=== PATIENT | female | born 1940 | race African-American/Black ===

== ENCOUNTER 2016-08-08 09:28 | Inpatient (IN) | payer OTHER, MEDICARE ==
[~2016-08-08] VITALS: Ht 165.1 cm; Wt 68.9 kg
[~2016-08-08 09:28] MED LIST: ACET325T PO; SENN8.6T15 PO; ULTR50TA5 PO
[2016-08-08 09:30] VITALS: BP 121/75; PULSE 97; RESP 14; TEMP 97.8; O2SAT 95
[2016-08-08 09:43] VITALS: BP 121/75; PULSE 97; RESP 14; TEMP 97.8; O2SAT 95
--- NOTE | 2016-08-08 09:53 | PD ---
HPI Chief Complaint: GI Complaint Time Seen by Provider: 09:36 Travel History International Travel<30 days: No Contact w/Intl Traveler<30days: No Traveled to known affect area: No History of Present Illness HPI The patient was seen and examined in the presence of the nurse. This patient complains of abdominal pain along with nausea and vomiting. Location of pain is epigastric. Duration 4 days. Severity is moderate. No alleviating factors. She thinks problem is related to a new medication she started. He was prescribed tramadol for her arthritis. Symptoms started about 30 minutes after she took the first dose of that medication and she has been taking since. Denies diarrhea. No lower quadrant abdominal pain. Not having any fever or urinary complaints. PFSH Past Medical History Hx Anticoagulant Therapy: Yes Arthritis: Yes (RA) Asthma: No Autoimmune Disease: Yes (RA) Anxiety: No Depression: No Heart Rhythm Problems: No Cancer: No Cardiovascular Problems: Yes High Cholesterol: No Chemotherapy: No Chest Pain: No Congestive Heart Failure: No COPD: No Cerebrovascular Accident: Yes Diabetes: No Diminished Hearing: No Endocrine: No Gastrointestinal Disorders: Yes GERD: Yes Genitourinary: Yes Hiatal Hernia: No Hypertension: Yes Immune Disorder: Yes Implanted Vascular Access Dvce: Yes Kidney Stones: No Musculoskeletal: Yes Neurologic: Yes Psychiatric: No Reproductive: Yes (FIBROIDS, HYSTERECTOMY) Respiratory: No Immunizations Current: No Migraines: No Radiation Therapy: No Renal Failure: Yes (ANDRÉS) Seizures: No Sickle Cell Disease: No Sleep Apnea: No Thyroid Disease: No Ulcer: No Past Surgical History Abdominal Surgery: No AICD: No Arteriovenous Shunt: No Cardiac Surgery: No Ear Surgery: No Endocrine Surgery: No Eye Surgery: No Genitourinary Surgery: No Gynecologic Surgery: Yes (HYSTERECTOMY) Hysterectomy: Yes Insulin Pump: No Joint Replacement: Yes (RIGHT TOTAL HIP) Oral Surgery: No Pacemaker: No Thoracic Surgery: No Other Surgery: Yes Social History Alcohol Use: No Tobacco Use: No Substance Use: No Allergies-Medications (Allergen,Severity, Reaction): Coded Allergies: Shellfish (Verified Allergy, Intermediate, rash, 08/08/16) Reported Meds & Prescriptions Reported Meds & Active Scripts Active Ultram (Tramadol HCl) 50 Mg Tab 1-2 Mg PO Q4H PRN Review of Systems General / Constitutional: No: Fever Eyes: No: Visual changes HENT: No: Headaches Cardiovascular: No: Chest Pain or Discomfort Respiratory: No: Shortness of Breath Gastrointestinal: Positive: Nausea, Vomiting, Abdominal Pain Genitourinary: No: Dysuria Musculoskeletal: No: Pain Skin: No Rash Neurologic: No: Weakness Psychiatric: No: Depression Endocrine: No: Polydipsia Hematologic/Lymphatic: No: Easy Bruising Physical Exam Narrative GENERAL: Well-nourished, well-developed patient in no apparent distress. SKIN: Warm and dry. HEAD: Atraumatic. Normocephalic. EYES: Pupils equal and round. No scleral icterus. No injection or drainage. ENT: No nasal bleeding or discharge. Mucous membranes pink and moist. NECK: Trachea midline. No JVD. CARDIOVASCULAR: Regular rate and rhythm. No murmur appreciated. RESPIRATORY: No accessory muscle use. Clear to auscultation. Breath sounds equal bilaterally. GASTROINTESTINAL: Abdomen soft, non-tender, nondistended. Hepatic and splenic margins not palpable. Well-healed midline surgical scar MUSCULOSKELETAL: No obvious deformities. No clubbing. No cyanosis. No edema. NEUROLOGICAL: Awake and alert. No obvious cranial nerve deficits. Motor grossly within normal limits. Normal speech. PSYCHIATRIC: Appropriate mood and affect; insight and judgment normal. Data Data Last Documented VS Vital Signs Date Time Temp Pulse Resp B/P Pulse Ox O2 Delivery O2 Flow Rate FiO2 08/08/16 12:53 83 14 101/55 95 Room Air 08/08/16 09:43 97.8 Orders Complete Blood Count With Diff (08/08/16 09:47) Comprehensive Metabolic Panel (08/08/16 09:47) Lipase (08/08/16 09:47) Abdomen, Flat & Upright (08/08/16 ) Iv Access Insert/Monitor (08/08/16 09:47) Morphine Inj (Morphine Inj) (08/08/16 10:00) Ondansetron Inj (Zofran Inj) (08/08/16 10:00) Sodium Chloride 0.9% Flush (Ns Flush) (08/08/16 10:00) Sodium Chlor 0.9% 1000 Ml Inj (Ns 1000 M (08/08/16 11:45) Ct Abd/Pel W/O Iv Contrast (08/08/16 ) Admit To Inpatient (08/08/16 ) Code Status (08/08/16 13:24) Vital Signs (Adult) Q4H (08/08/16 13:24) Activity Oob With Assistance (08/08/16 13:24) Diet Clear Liquid (08/08/16 Lunch) Sodium Chlor 0.9% 1000 Ml Inj (Ns 1000 M (08/08/16 14:00) Sodium Chloride 0.9% Flush (Ns Flush) (08/08/16 13:30) Sodium Chloride 0.9% Flush (Ns Flush) (08/08/16 21:00) Acetaminophen (Tylenol) (08/08/16 14:00) Ondansetron Inj (Zofran Inj) (08/08/16 14:00) Comprehensive Metabolic Panel (08/09/16 06:00) Complete Blood Count With Diff (08/09/16 06:00) Pt Request For Service (08/08/16 13:24) Case Management Consult (08/08/16 13:24) Scd Bilateral/Knee High LIBBY.BID (08/08/16 13:24) Mg Bilateral/Knee High LIBBY.QSHIFT (08/08/16 13:24) Acetaminophen (Tylenol) (08/08/16 14:00) Naloxone Inj (Narcan Inj) (08/08/16 13:30) Inpatient Certification (08/08/16 ) Pantoprazole Inj (Protonix Inj) (08/09/16 09:00) Enalaprilat Inj (Vasotec Inj) (08/08/16 14:00) Sodium Chlor 0.9% 1000 Ml Inj (Ns 1000 M (08/08/16 14:00) Basic Metabolic Panel (Bmp) (08/08/16 18:00) Us Kidney/Renal/Bladder (08/08/16 ) Labs Laboratory Tests Test 08/08/16 10:35 White Blood Count 6.3 TH/MM3 Red Blood Count 5.22 MIL/MM3 Hemoglobin 13.7 GM/DL Hematocrit 41.1 % Mean Corpuscular Volume 78.7 FL Mean Corpuscular Hemoglobin 26.3 PG Mean Corpuscular Hemoglobin 33.4 % Concent Red Cell Distribution Width 16.4 % Platelet Count 193 TH/MM3 Mean Platelet Volume 10.2 FL Neutrophils (%) (Auto) 56.6 % Lymphocytes (%) (Auto) 30.4 % Monocytes (%) (Auto) 11.7 % Eosinophils (%) (Auto) 1.0 % Basophils (%) (Auto) 0.3 % Neutrophils # (Auto) 3.5 TH/MM3 Lymphocytes # (Auto) 1.9 TH/MM3 Monocytes # (Auto) 0.7 TH/MM3 Eosinophils # (Auto) 0.1 TH/MM3 Basophils # (Auto) 0.0 TH/MM3 CBC Comment DIFF FINAL Differential Comment Sodium Level 128 MEQ/L Potassium Level 3.8 MEQ/L Chloride Level 83 MEQ/L Carbon Dioxide Level 30.5 MEQ/L Anion Gap 15 MEQ/L Blood Urea Nitrogen 71 MG/DL Creatinine 2.82 MG/DL Estimat Glomerular Filtration 20 ML/MIN Rate Random Glucose 111 MG/DL Calcium Level 9.6 MG/DL Total Bilirubin 0.6 MG/DL Aspartate Amino Transf 18 U/L (AST/SGOT) Alanine Aminotransferase 16 U/L (ALT/SGPT) Alkaline Phosphatase 100 U/L Total Protein 10.3 GM/DL Albumin 3.7 GM/DL Lipase 194 U/L [facility] Medical Decision Making Medical Screen Exam Complete: Yes Emergency Medical Condition: Yes Medical Record Reviewed: Yes Differential Diagnosis Pancreatitis, ileus, medication side effect Narrative Course I have reviewed the patient's electronic medical record. IV placed CBC is normal Metabolic profile is very abnormal with hyponatremia and renal insufficiency LFTs are normal Lipase is normal I reviewed her flat and upper abdomen x-ray which shows a few scattered air- fluid levels I gave her dose of morphine and Zofran for symptom relief CT of abdomen and pelvis was done which reveals dilated small intestine with a decrease in caliber to the distal small intestine. Suggest some degree of ileus /obstruction. She is vomiting and dehydrated to the point of renal insufficiency. She will require hospital admission for IV fluid and bowel rest and further evaluation of intra-abdominal process. I reviewed with hospitalist Diagnosis Primary Impression: Partial small bowel obstruction Additional Impressions: Dehydration with hyponatremia Acute renal failure Qualified Code: N17.9 - Acute renal failure, unspecified acute renal failure type Admitting Information Admitting Physician Requests: Admit Giovanni Nava MD Aug 08, 2016 09:53
[2016-08-08] MEDS ORDERED: ONDANSETRON HCL 4 MG/2 ML VIAL IVP ONE (10:00)
[2016-08-08] MEDS ORDERED: MORPHINE SULFATE 4 MG/ML INJ IV PUSH ONE (10:00)
[2016-08-08] MEDS ORDERED: SODIUM CHLORIDE 0.9% FLUSH 5 ML FLUSH IVF PRN (10:00)
--- NOTE | 2016-08-08 10:37 | RADRPT ---
EXAM DATE/TIME: 08/08/2016 10:06 [facility] COMPARISON: No previous studies available for comparison. INDICATIONS : Diffuse abdominal pain with nausea and vomiting. MEDICAL HISTORY : Benign fibroid tumor. SURGICAL HISTORY : None. ENCOUNTER: Initial ACUITY: 4 - 6 days PAIN SCORE: 5/10 LOCATION: Abdomen. FINDINGS: Supine and upright views of the abdomen were performed. The abdominal bowel gas pattern is normal. No air fluid levels are seen. No abnormal masses, calcifications, or organomegaly is seen. The visu alized lower lungs are clear. No evidence of free intraperitoneal gas. The osseous structures are u nremarkable. The IVC filter is in place. Right hip bipolar arthroplasty in place CONCLUSION: Normal examination. A few air-fluid levels in nondilated loops of small bowel. No evidence of obstru ction Julio Batista MD on August 08, 2016 at 10:33 Board Certified Radiologist. This report was verified electronically.
[2016-08-08 10:59] LABS: AUTOMATED NEUTROPHIL # 3.5 TH/MM3 (1.8-7.7); BASOPHIL % 0.3 % (0.0-2.0); EOSINOPHIL # 0.1 TH/MM3 (0-0.4); HEMATOCRIT 41.1 % (35.0-46.0); HEMO FLAGS DIFF FINAL; LYMPH % 30.4 % (9.0-44.0); LYMPHOCYTE # 1.9 TH/MM3 (1.0-4.8); MEAN CELL VOLUME 78.7 FL (80.0-100.0); MEAN CORPUSCULAR HEMOGLOBIN 26.3 PG (27.0-34.0); MEAN CORPUSCULAR HGB CONC 33.4 % (32.0-36.0); MONO % 11.7 % (0.0-8.0); NEUT % 56.6 % (16.0-70.0); PLATELET COUNT 193 TH/MM3 (150-450); RED BLOOD COUNT 5.22 MIL/MM3 (4.00-5.30); RED CELL DISTRIBUTION WIDTH 16.4 % (11.6-17.2); WHITE BLOOD COUNT 6.3 TH/MM3 (4.0-11.0)
[2016-08-08 11:17] LABS: ALKALINE PHOSPHATASE 100 U/L (45-117); TOTAL BILIRUBIN ADULT 0.6 MG/DL (0.2-1.0)
[2016-08-08 11:19] LABS: ALT (GPT) 16 U/L (10-53); ANION GAP 15 MEQ/L (5-15); AST (GOT) 18 U/L (15-37); BICARBONATE 30.5 MEQ/L (21.0-32.0); BLOOD UREA NITROGEN 71 MG/DL (7-18); CHLORIDE 83 MEQ/L (98-107); GLOMERULAR FILTRATION RATE 20 ML/MIN (>89); POTASSIUM 3.8 MEQ/L (3.5-5.1); SODIUM (NA) 128 MEQ/L (136-145)
[2016-08-08] MEDS ORDERED: SODIUM CHLOR 0.9% 1000 ML INJ 1,000 ML IV ONE ×2 (11:45→14:00)
--- NOTE | 2016-08-08 12:23 | RADRPT ---
EXAM DATE/TIME: 08/08/2016 11:41 [facility] COMPARISON: No previous studies available for comparison. INDICATIONS : Diffuse abdomen pain. ORAL CONTRAST: No oral contrast ingested. RADIATION DOSE: 5.03 CTDIvol (mGy) MEDICAL HISTORY : Cerebrovascular disease. Hypertension. Renal failure, chronic. SURGICAL HISTORY : Hysterectomy. ENCOUNTER: Initial ACUITY: 1 day PAIN SCALE: 2/10 LOCATION: abdomen TECHNIQUE: Volumetric scanning of the abdomen and pelvis was performed. Using automated exposure control and ad justment of the mA and/or kV according to patient size, radiation dose was kept as low as reasonably achievable to obtain optimal diagnostic quality images. FINDINGS: CT of the abdomen and pelvis was performed without contrast. The unenhanced liver, gallbladder, kidn eys, adrenal glands and spleen are unremarkable. The pancreas is unremarkable. There is significant fluid throughout the small bowel except there are some decompressed loops of sma ll bowel in the right mid abdomen. I would estimate at least 80 to 90% of the small bowel is dilated and fluid filled. There area number of loops between 3 to 4 cm and width. I don't see any definite point of obstruction or obvious hernia but there is clearly a significant caliber change in the mid to distal ileum. There is still stool throughout the colon. IVC filter is in place. CONCLUSION: Definite caliber change in the mid to distal ileum. There are numerous fluid filled loops of small bowel between 3 to 4 cm and then the distal ileal loops area only 1 cm across. I don't see any disti nct transition zone or definite internal hernia. Julio Batista MD on August 08, 2016 at 11:58 Board Certified Radiologist. This report was verified electronically.
[2016-08-08 12:53] VITALS: BP 101/55; PULSE 83; RESP 14; O2SAT 95
--- NOTE | 2016-08-08 13:28 | HHI.HP ---
[facility] Primary Care Physician Unknown Admission Diagnosis Diagnoses: (1) Intractable nausea and vomiting (2) Acute renal failure Chief Complaint: Intractable nausea and vomiting Travel History International Travel<30 Days: No Contact w/Intl Traveler <30 Da: No Traveled to Known Affected Are: No History of Present Illness 76-year-old female with history of rheumatoid arthritis who was recently admitted in hospital and discharge after undergoing surgery on her left risk for tenosynovitis/osteomyelitis back in 06/19/17 compared to the ED for evaluation of 5 day history of intractable nausea and vomiting along with abdominal pain without any chest pain or shortness of breath. States she's been vomiting mostly bile without any blood. Patient's report flatus and occasional bowel movements however states since she hasn't been able to keep anything down she is not eating much. She denies any diarrhea. Patient believes, her symptoms started after she was prescribed medication 5-6 days ago which she is unable to recall. She has sodium of 128 and BUN/[id number]/ 2.82. She has no GI bleed. Review of Systems Other Other 12 systems reviewed and are negative except for the one mentioned in history of presenting S Past Family Social History Past Medical History Rheumatoid arthritis Hypertension Osteoarthritis Venous stasis dermatitis Vitamin D deficiency, postmenopausal Osteoporosis Past Surgical History 06/18/16 patient underwent exploration, arthrotomy, drainage and wash radio carpal joint, midcarpal joint, distal radioulnar joint, extensor tenosynovectomy left wrist/forearm Hysterectomy for fibroid uterus age 49 Reported Medications Ultram (Tramadol HCl) 50 Mg Tab 1-2 Mg PO Q4H PRN Allergies: Coded Allergies: Shellfish (Verified Allergy, Intermediate, rash, 08/08/16) Family History Mother with history of rheumatoid arthritis Social History Alcohol Use: No Tobacco Use: No Substance Use: No Physical Exam Vital Signs Vital Signs Date Time Temp Pulse Resp B/P Pulse Ox O2 Delivery O2 Flow Rate FiO2 08/08/16 12:53 83 14 101/55 95 Room Air 08/08/16 10:37 16 08/08/16 09:43 97.8 97 14 121/75 95 08/08/16 09:40 16 08/08/16 09:30 97.8 97 14 121/75 95 Physical Exam GENERAL: This is a well-nourished, well-developed patient, in no apparent distress. SKIN: No rashes, ecchymoses or lesions. Cool and dry. HEAD: Atraumatic. Normocephalic. No temporal or scalp tenderness. EYES: Pupils equal round and reactive. Extraocular motions intact. No scleral icterus. No injection or drainage. ENT: Nose without bleeding, purulent drainage or septal hematoma. Throat without erythema, tonsillar hypertrophy or exudate. Uvula midline. Airway patent. NECK: Trachea midline. No JVD or lymphadenopathy. Supple, nontender, no meningeal signs. CARDIOVASCULAR: Regular rate and rhythm without murmurs, gallops, or rubs. RESPIRATORY: Clear to auscultation. Breath sounds equal bilaterally. No wheezes , rales, or rhonchi. GASTROINTESTINAL: Abdomen soft, non-tender, nondistended. No hepato-splenomegaly , or palpable masses. No guarding. MUSCULOSKELETAL: Extremities without clubbing, cyanosis, or edema. Multiple hands and feet deformity/contractures. Splint to left wrist NEUROLOGICAL: Awake and alert. Cranial nerves II through XII intact. Motor and sensory grossly within normal limits. Five out of 5 muscle strength in all muscle groups. Normal speech. Laboratory Laboratory Tests Test 08/08/16 10:35 White Blood Count 6.3 Red Blood Count 5.22 Hemoglobin 13.7 Hematocrit 41.1 Mean Corpuscular Volume 78.7 Mean Corpuscular Hemoglobin 26.3 Mean Corpuscular Hemoglobin 33.4 Concent Red Cell Distribution Width 16.4 Platelet Count 193 Mean Platelet Volume 10.2 Neutrophils (%) (Auto) 56.6 Lymphocytes (%) (Auto) 30.4 Monocytes (%) (Auto) 11.7 Eosinophils (%) (Auto) 1.0 Basophils (%) (Auto) 0.3 Neutrophils # (Auto) 3.5 Lymphocytes # (Auto) 1.9 Monocytes # (Auto) 0.7 Eosinophils # (Auto) 0.1 Basophils # (Auto) 0.0 CBC Comment DIFF FINAL Differential Comment Sodium Level 128 Potassium Level 3.8 Chloride Level 83 Carbon Dioxide Level 30.5 Anion Gap 15 Blood Urea Nitrogen 71 Creatinine 2.82 Estimat Glomerular Filtration 20 Rate Random Glucose 111 Calcium Level 9.6 Total Bilirubin 0.6 Aspartate Amino Transf 18 (AST/SGOT) Alanine Aminotransferase 16 (ALT/SGPT) Alkaline Phosphatase 100 Total Protein 10.3 Albumin 3.7 Lipase 194 Result Diagram: 08/08/16 1035 08/08/16 1035 Assessment and Plan Problem List: (1) Intractable nausea and vomiting ICD Code: R11.2 Status: Acute (2) Acute renal failure ICD Code: N17.9 Status: Acute (3) Hyponatremia ICD Code: E87.1 Status: Acute Assessment and Plan 76-year-old female with 1-Intractable nausea and vomiting: CT abdomen noted interview by me with finding of dilated small intestine with a decrease in caliber to the distal small intestine. Suggest some degree of ileus/obstruction. Conservative management with IV fluid hydration, clear liquid.. 2-Acute renal failure; prerenal secondary to dehydration. BUN/creatinine of 71/ 2.82 today compared to 9/0.57 on 06/28/16. Status post 2 L Bolus in ED will give additional 1L NS bolus now, start IV fluid hydration and repeat BMP at 18; 00. Check Renal US and a board all nephrotoxic drugs 2-Hypotension: Secondary to volume loss; continue with IV fluid hydration and hold on antihypertensive medication 3-History of hypertension: Hold on antihypertensive medication 4-Hyponatremia: Treat with IV fluid hydration, monitor BMP 5-Partial small bowel obstruction: CT abdomen noted and review with finding of dilated small intestine with a decrease in caliber to the distal small intestine. Suggest some degree of ileus/obstruction.Conservative management, IVF hydration, Clears. Repeat KUB in AM. Consider NGT placement if no improvement DVT prophylaxis: Bilateral SCDs Code Status Full code Discussed Condition With Patient, ED physician Physician Certification 2 Midnight Certification Type: Admission for Inpatient Services Order for Inpatient Services The services are ordered in accordance with Medicare regulations or non- Medicare payer requirements, as applicable. In the case of services not specified as inpatient-only, they are appropriately provided as inpatient services in accordance with the 2-midnight benchmark. Estimated LOS (days): 2 days is the estimated time the patient will need to remain in the hospital, assuming treatment plan goals are met and no additional complications. Post-Hospital Plan: Not yet determined Problem Qualifiers (1) Acute renal failure: Qualified Code: N17.9 - Acute renal failure, unspecified acute renal failure type Sebastian Barrios MD Aug 08, 2016 13:28
[2016-08-08] MEDS ORDERED: SODIUM CHLORIDE 0.9% FLUSH 5 ML FLUSH FLUSH PRN (13:30)
[2016-08-08] MEDS ORDERED: NALOXONE HCL 0.4 MG/ML AMP IV PRN (13:30)
[2016-08-08] MEDS ORDERED: ENALAPRILAT 1.25 MG/ML VIAL IV PUSH PRN (14:00)
[2016-08-08] MEDS ORDERED: ACETAMINOPHEN 325 MG TAB PO PRN (14:00)
[2016-08-08] MEDS: SODIUM CHLOR 0.9% 1000 ML INJ 1,000 ML IV SCH ×2 (15:06→21:34)
--- NOTE | 2016-08-08 16:25 | RADRPT ---
EXAM DATE/TIME: 08/08/2016 15:34 [facility] COMPARISON: No previous studies available for comparison. INDICATIONS : Increased BUN/Creatinine. MEDICAL HISTORY : Hypertension. Gastroesophageal reflux disease. Cerebrovascular accident. Anticoagulant therapy. Ath ritis. SURGICAL HISTORY : Hysterectomy. Bilateral hand surgery. Right total hip repair. ENCOUNTER: Initial ACUITY: 1 day PAIN SCORE: 0/10 LOCATION: Bilateral flank MEASUREMENTS: RIGHT KIDNEY: 8.7 x 5.4 x 4.1 cm LEFT KIDNEY: 9.8 x 5.4 x 5.1 cm FINDINGS: RIGHT KIDNEY: Kidney is small and echogenic without stone or hydronephrosis. LEFT KIDNEY: Small echogenic kidneys with 3 cm cyst. There is no hydronephrosis. BLADDER: The bladder is empty. Trace fluid is noted. CONCLUSION: Small echogenic kidneys without hydronephrosis. Richard Diaz MD FACR on August 08, 2016 at 16:23 Board Certified Radiologist. This report was verified electronically.
[2016-08-08 17:48] VITALS: BP 97/62; PULSE 74; RESP 16; O2SAT 98
[2016-08-08 21:00] VITALS: BP 114/68; PULSE 85; RESP 19; TEMP 96.8; O2SAT 100
[2016-08-08] MEDS: SODIUM CHLORIDE 0.9% FLUSH 5 ML FLUSH FLUSH SCH (21:34)
[2016-08-08 21:37] LABS: BICARBONATE 27.3 MEQ/L (21.0-32.0)
[2016-08-09] VITALS: BP 117/72; PULSE 57; RESP 18; TEMP 98.3; O2SAT 95
[2016-08-09] MEDS: ACETAMINOPHEN 325 MG TAB PO PRN ×2 (00:37→06:10)
[2016-08-09] MEDS: ONDANSETRON HCL 4 MG/2 ML VIAL IVP PRN ×4 (00:37→15:24)
[2016-08-09] MEDS: POTASSIUM CHLOR 10 MEQ PREMIX 100 ML IV SCH ×2 (01:22→02:21)
[2016-08-09] MEDS: SODIUM CHLOR 0.9% 1000 ML INJ 1,000 ML IV SCH ×3 (02:21→19:46)
[2016-08-09 05:16] LABS: AUTOMATED NEUTROPHIL # 2.5 TH/MM3 (1.8-7.7); BASOPHIL % 0.2 % (0.0-2.0); EOSINOPHIL # 0.2 TH/MM3 (0-0.4); EOSINOPHIL % 4.8 % (0.0-4.0); HEMATOCRIT 34.9 % (35.0-46.0); HEMO FLAGS DIFF FINAL; LYMPH % 31.6 % (9.0-44.0); LYMPHOCYTE # 1.6 TH/MM3 (1.0-4.8); MEAN CELL VOLUME 79.2 FL (80.0-100.0); MEAN CORPUSCULAR HEMOGLOBIN 25.9 PG (27.0-34.0); MEAN CORPUSCULAR HGB CONC 32.7 % (32.0-36.0); NEUT % 50.4 % (16.0-70.0); PLATELET COUNT 159 TH/MM3 (150-450); RED BLOOD COUNT 4.41 MIL/MM3 (4.00-5.30); RED CELL DISTRIBUTION WIDTH 16.6 % (11.6-17.2)
[2016-08-09 05:38] LABS: ALKALINE PHOSPHATASE 82 U/L (45-117); ALT (GPT) 9 U/L (10-53); ANION GAP 12 MEQ/L (5-15); AST (GOT) 10 U/L (15-37); BICARBONATE 27.2 MEQ/L (21.0-32.0); BLOOD UREA NITROGEN 55 MG/DL (7-18); CHLORIDE 96 MEQ/L (98-107); GLOMERULAR FILTRATION RATE 49 ML/MIN (>89); SODIUM (NA) 135 MEQ/L (136-145); TOTAL BILIRUBIN ADULT 0.4 MG/DL (0.2-1.0)
[2016-08-09 08:00] VITALS: BP 115/62; PULSE 64; RESP 17; TEMP 96.5; O2SAT 96
--- NOTE | 2016-08-09 08:19 | RADRPT ---
EXAM DATE/TIME: 08/09/2016 08:00 [facility] COMPARISON: CT ABDOMEN & PELVIS W/O CONTRAST, August 08, 2016, 11:41. US KIDNEY/RENAL/BLADDER, August 08, 2016 , 15:34. INDICATIONS : abdomen pain MEDICAL HISTORY : None. SURGICAL HISTORY : None. ENCOUNTER: Subsequent ACUITY: 1 day PAIN SCORE: 10/10 LOCATION: Bilateral abdomen FINDINGS: Upright and supine views of the abdomen are performed. There are air-fluid levels identified within d ilated small bowel loops consistent with a small bowel obstruction. No evidence of free air. There is an IVC filter overlying the midline abdomen. Osseous structures demonstrate a total right hip arthro plasty but are otherwise unremarkable. CONCLUSION: Radiographic findings consistent with a small bowel obstruction. No evidence of free air. Arin Downey MD on August 09, 2016 at 8:15 Board Certified Radiologist. This report was verified electronically.
[2016-08-09] MEDS: SODIUM CHLORIDE 0.9% FLUSH 5 ML FLUSH FLUSH SCH ×2 (09:49→19:45)
[2016-08-09] MEDS: PANTOPRAZOLE SODIUM 40 MG VIAL IV PUSH SCH (09:50)
[2016-08-09] MEDS ORDERED: SODIUM CHLORID 0.9% 500 ML INJ 500 ML IV ONE (11:00)
--- NOTE | 2016-08-09 11:09 | HHI.PR ---
Subjective Remarks Follow up ARF/now SBO 08/09/16-patient seen and examined; still with intractable N/V; improving ARF. Objective Vitals Vital Signs Date Time Temp Pulse Resp B/P Pulse Ox O2 Delivery O2 Flow Rate FiO2 08/09/16 08:00 96.5 64 17 115/62 96 08/09/16 00:00 98.3 57 18 117/72 95 08/08/16 21:00 96.8 85 19 114/68 100 08/08/16 17:48 74 16 97/62 98 Room Air 08/08/16 12:53 83 14 101/55 95 Room Air I/O 08/08/16 08/08/16 08/08/16 08/09/16 08/09/16 08/09/16 07:00 15:00 23:00 07:00 15:00 23:00 Intake Total 520 ml 1215 ml Balance 520 ml 1215 ml Intake Oral 120 ml 240 ml IV Total 400 ml 975 ml # Voids 0 0 # Bowel Movements 0 0 Result Diagram: 08/09/16 0427 08/09/16 0427 Imaging Last Impressions Abdomen X-Ray 08/09/16 0600 Signed Impressions: Service Date/Time: Tuesday, August 09, 2016 08:00 - CONCLUSION: Radiographic findings consistent with a small bowel obstruction. No evidence of free air. Arin Downey MD Renal Ultrasound 08/08/16 0000 Signed Impressions: Service Date/Time: Monday, August 08, 2016 15:34 - CONCLUSION: Small echogenic kidneys without hydronephrosis. Richard Diaz MD FACR Abdomen/Pelvis CT 08/08/16 0000 Signed Impressions: Service Date/Time: Monday, August 08, 2016 11:41 - CONCLUSION: Definite caliber change in the mid to distal ileum. There are numerous fluid filled loops of small bowel between 3 to 4 cm and then the distal ileal loops area only 1 cm across. I don't see any distinct transition zone or definite internal hernia. Julio Batista MD Objective Remarks GENERAL: NAD SKIN: Warm and dry.left ankle ulcer HEAD: Normocephalic. EYES: No scleral icterus. No injection or drainage. NECK: Supple, trachea midline. No JVD or lymphadenopathy. CARDIOVASCULAR: Regular rate and rhythm without murmurs, gallops, or rubs. RESPIRATORY: Breath sounds equal bilaterally. No accessory muscle use. GASTROINTESTINAL: Abdomen soft, non-tender, nondistended. MUSCULOSKELETAL: No cyanosis, or edema. BACK: Nontender without obvious deformity. No CVA tenderness. A/P Problem List: (1) Intractable nausea and vomiting ICD Code: R11.2 Status: Acute (2) Acute renal failure ICD Code: N17.9 Status: Acute (3) Hyponatremia ICD Code: E87.1 Status: Acute (4) SBO (small bowel obstruction) ICD Code: K56.69 Status: Acute (5) Decubitus ulcer, ankle ICD Code: L89.509 Status: Acute Assessment and Plan 76yrs old female with 1-Intractable nausea and vomiting: CT abdomen with finding of dilated small intestine with a decrease in caliber to the distal small intestine. Suggest some degree of ileus/obstruction. Place NGT, NPO, IVF hydration and consider Surgical consultation if no improvement within next 72hrs.Repeat KUB in AM 2-Acute renal failure; prerenal secondary to dehydration. Improving with IVF hydration; s/p 3L NS bolus; will give additional 500cc NS bolus. Renal US w/out Hydronephrosis 2-Hypotension: Secondary to volume loss; continue with IV fluid hydration and hold on antihypertensive medication 3-History of hypertension: Hold on antihypertensive medication 4-Hyponatremia: Improving with IV fluid hydration, monitor BMP 5-Small bowel obstruction: CT abdomen with finding of dilated small intestine with a decrease in caliber to the distal small intestine. Suggest some degree of ileus/obstruction. However KUB this AM with Radiographic findings consistent with a small bowel obstruction. No evidence of free air. Place NGT, NPO, IVF hydration and consider Surgical consultation if no improvement within next 72hrs.Repeat KUB in AM 6-Left ankle ulcer: Consult wound care nurse; Start Santyl post evaluation from Wound care nurse DVT prophylaxis: Bilateral SCDs Problem Qualifiers (1) Acute renal failure: Qualified Code: N17.9 - Acute renal failure, unspecified acute renal failure type Sebastian Barrios MD Aug 09, 2016 11:09
[2016-08-09] MEDS: POTASSIUM CHLOR 20 MEQ PREMIX 100 ML IV SCH ×2 (11:40→15:24)
[2016-08-09 12:00] VITALS: BP 133/82; PULSE 87; RESP 18; TEMP 97; O2SAT 97
[2016-08-09 15:54] VITALS: BP 137/69; PULSE 80; RESP 21; TEMP 97.1; O2SAT 96
[2016-08-09 20:00] VITALS: BP 123/58; PULSE 83; RESP 18; TEMP 97.9; O2SAT 95
[2016-08-10] VITALS: BP 118/84; PULSE 84; RESP 18; TEMP 98; O2SAT 97
[2016-08-10] MEDS: SODIUM CHLOR 0.9% 1000 ML INJ 1,000 ML IV SCH ×3 (03:57→20:32)
[2016-08-10 04:17] LABS: AUTOMATED NEUTROPHIL # 3.1 TH/MM3 (1.8-7.7); BASOPHIL % 0.2 % (0.0-2.0); EOSINOPHIL # 0.2 TH/MM3 (0-0.4); EOSINOPHIL % 4.5 % (0.0-4.0); HEMATOCRIT 32.9 % (35.0-46.0); HEMO FLAGS DIFF FINAL; LYMPH % 26.2 % (9.0-44.0); LYMPHOCYTE # 1.4 TH/MM3 (1.0-4.8); MEAN CELL VOLUME 80.2 FL (80.0-100.0); MEAN CORPUSCULAR HGB CONC 32.4 % (32.0-36.0); MONO % 12.5 % (0.0-8.0); NEUT % 56.6 % (16.0-70.0); PLATELET COUNT 134 TH/MM3 (150-450); RED BLOOD COUNT 4.11 MIL/MM3 (4.00-5.30); WHITE BLOOD COUNT 5.5 TH/MM3 (4.0-11.0)
[2016-08-10 04:49] LABS: BICARBONATE 23.3 MEQ/L (21.0-32.0); POTASSIUM 3.8 MEQ/L (3.5-5.1)
[2016-08-10 08:00] VITALS: BP 123/78; PULSE 86; RESP 17; TEMP 97.7; O2SAT 97
--- NOTE | 2016-08-10 08:34 | RADRPT ---
EXAM DATE/TIME: 08/10/2016 08:04 [facility] COMPARISON: CT ABDOMEN & PELVIS W/O CONTRAST, August 08, 2016, 11:41. MRI WRIST LEFT W & W/O CONTRAST, June 18, 2016, 16:38. PELVIS AP ONLY, September 21, 2012, 11:58. ABDOMEN FLAT & UPRIGHT, August 09 7, 8:00. INDICATIONS : Nausea & vomiting. MEDICAL HISTORY : Hypertension. Gastroesophageal reflux disease. Cerebrovascular accident. Anticoagulant therapy. Athri tis. SURGICAL HISTORY : Hysterectomy. Bilateral hand surgery. Right total hip repair. IVC filter. ENCOUNTER: Subsequent ACUITY: 3 days PAIN SCORE: 0/10 LOCATION: abdomen. FINDINGS: Persistent but slightly improved ileus is noted. There is decrease in caliber of air-filled small int estinal loops. There is no mass mass effect or free air. IVC filter is again noted in place. CONCLUSION: Persistent but slightly improved ileus. No significant progression of gas in the colon. No evidence of free air. Tom Almazan MD on August 10, 2016 at 8:17 Board Certified Radiologist. This report was verified electronically.
[2016-08-10] MEDS: SODIUM CHLORIDE 0.9% FLUSH 5 ML FLUSH FLUSH SCH ×2 (09:00→20:32)
--- NOTE | 2016-08-10 10:33 | MB ---
cc: CHUNG LARES DATE OF CONSULTATION 08/09/[address] Sebastian Barrios REASON FOR CONSULTATION Small bowel obstruction HISTORY OF PRESENT ILLNESS The patient is a 76-year-old female who was admitted to [facility] on 08/08/2016 with dehydration, acute renal failure, nausea and vomiting. The patient underwent a workup and treatment included a CT scan of the abdomen pelvis which was concerning for possible small bowel obstruction versus ileus with no definitive transition point. The patient underwent treatment of her acute renal failure with IV hydration with response to her rehydration. Since admission, the patient has had no bowel movements, but has persistent small volume bilious and nonbilious emesis. However, states she is passing flatus. Multiple abdominal series x-rays have shown persistent dilated loops of small bowel. The patient states that she has had nausea and vomiting ever since she had some tramadol and states that this tramadol is the cause of her illness. She states she has never had a bowel obstruction before. The patient has a previous surgical history which is essentially a laparotomy for some type of removal of a fibroid and a hysterectomy thirty years ago. REVIEW OF SYSTEMS A 12 review of systems is conducted with the patient. The negatives and the pertinent positives are mentioned above in the history of present illness. PAST MEDICAL HISTORY 1. Rheumatoid arthritis 2. Hypertension 3. Osteoarthritis 4. Venostasis dermatitis 5. Osteoporosis PAST SURGICAL HISTORY 30 years ago abdominal hysterectomy. ALLERGIES SHELLFISH MEDICATIONS Ultram FAMILY HISTORY The patient has a family history of rheumatoid arthritis. SOCIAL HISTORY The patient denies alcohol, tobacco or illicit drug use. PHYSICAL EXAMINATION VITAL SIGNS: Temperature 97.1 degrees, heart rate 80, blood pressure 137/69. GENERAL: The patient is a thin -[place] female in no acute distress. HEAD: Normocephalic, atraumatic. EYES: Pupils round and reactive to accommodation and light. EARS, NOSE, AND THROAT: Mucous membranes are moist. NECK: Supple. No JVD. LUNGS: Breath sounds present bilaterally. Nonlabored breathing pattern. HEART: Regular rate and rhythm. PMI is nondisplaced. ABDOMEN: Soft, minimally distended, nontender to palpation. No rebound, no guarding. Midline scar with no hernias from below xiphoid to the suprapubic area. BACK: No CVA tenderness. EXTREMITIES: Chronic edema. NEUROLOGIC: The patient is awake, alert, and oriented times three. Nonfocal focal peripheral exam. Multiple deformities consistent with end stage rheumatoid arthritis. LABORATORY VALUES White blood cell count 5.0, hemoglobin 11.4. Creatinine 1.29. ASSESSMENT/PLAN The patient is a 76-year-old female with nausea and vomiting, constipation and CT scan with dilated loops of all small bowel. The patient likely has a partial bowel obstruction due to adhesive disease from the patient's previous laparotomy. The patient does state she is passing gas and had relatively low volume emesis and states she is hungry. I did discuss with the patient options including NG tube placement, as well as possible surgical intervention. However, the patient adamantly refuses surgery at this time. I did discuss the patient's continued medical management and the possible alcohol is including non-resolution and further weakness and deterioration and even from not undergoing surgery if surgery is indicated for non-resolution of small bowel. However, the patient still refuses surgery at this time. The patient with some further discussion, does state that she would reconsider surgery if it was a life or situation, however. We will go ahead and prescribe an upper GI with small-bowel follow-through with Gastrografin for better evaluation of the patient's possible bowel obstruction and possibly therapeutic as well. I do agree with continued IV fluids and n.p.o. status at this time. We will follow along with the patient and continued abdominal examinations as if the patient does deteriorate clinically, she may eventually consent to surgery. Thank you very much for this consultation. MD GARO Chowdary/KODY /8:24 PM /10:20 AM
[2016-08-10] MEDS: COLLAGENASE OINT 30 GM TUBE TOP SCH (10:43)
[2016-08-10] MEDS: PANTOPRAZOLE SODIUM 40 MG VIAL IV PUSH SCH (10:43)
--- NOTE | 2016-08-10 11:35 | HHI.PR ---
Subjective Remarks Follow up ARF/now SBO 08/09/16-patient seen and examined; still with intractable N/V; improving ARF. 08/10/16-patient seen and examined; couldn't place NGT yesterday. states she is passing Flatus but no BM. denies any BM Objective Vitals Vital Signs Date Time Temp Pulse Resp B/P Pulse Ox O2 Delivery O2 Flow Rate FiO2 08/10/16 08:00 97.7 86 17 123/78 97 08/10/16 00:00 98.0 84 18 118/84 97 08/09/16 20:00 97.9 83 18 123/58 95 08/09/16 15:54 97.1 80 21 137/69 96 08/09/16 12:00 97.0 87 18 133/82 97 I/O 08/09/16 08/09/16 08/09/16 08/10/16 08/10/16 08/10/16 07:00 15:00 23:00 07:00 15:00 23:00 Intake Total 1215 ml 1574 ml 955 ml 925 ml Output Total 100 ml 100 ml 350 ml Balance 1215 ml 1474 ml 855 ml 575 ml Intake Oral 240 ml 250 ml 0 ml 0 ml IV Total 975 ml 1124 ml 955 ml 925 ml Other 200 ml Output Urine Total 350 ml Emesis 100 ml 100 ml # Voids 0 3 1 # Bowel Movements 0 0 0 0 Result Diagram: 08/10/16 0352 08/10/16 0352 Imaging Last Impressions Abdomen X-Ray 08/10/16 0600 Signed Impressions: Service Date/Time: Wednesday, August 10, 2016 08:04 - CONCLUSION: Persistent but slightly improved ileus. No significant progression of gas in the colon. No evidence of free air. Tom Almazan MD Renal Ultrasound 08/08/16 0000 Signed Impressions: Service Date/Time: Monday, August 08, 2016 15:34 - CONCLUSION: Small echogenic kidneys without hydronephrosis. Richard Diaz MD FACR Abdomen/Pelvis CT 08/08/16 0000 Signed Impressions: Service Date/Time: Monday, August 08, 2016 11:41 - CONCLUSION: Definite caliber change in the mid to distal ileum. There are numerous fluid filled loops of small bowel between 3 to 4 cm and then the distal ileal loops area only 1 cm across. I don't see any distinct transition zone or definite internal hernia. Julio Batista MD Objective Remarks GENERAL: NAD SKIN: Warm and dry.left ankle ulcer HEAD: Normocephalic. EYES: No scleral icterus. No injection or drainage. NECK: Supple, trachea midline. No JVD or lymphadenopathy. CARDIOVASCULAR: Regular rate and rhythm without murmurs, gallops, or rubs. RESPIRATORY: Breath sounds equal bilaterally. No accessory muscle use. GASTROINTESTINAL: Abdomen soft, non-tender, nondistended. MUSCULOSKELETAL: No cyanosis, or edema. BACK: Nontender without obvious deformity. No CVA tenderness. A/P Problem List: (1) Intractable nausea and vomiting ICD Code: R11.2 Status: Acute (2) Acute renal failure ICD Code: N17.9 Status: Acute (3) Hyponatremia ICD Code: E87.1 Status: Acute (4) SBO (small bowel obstruction) ICD Code: K56.69 Status: Acute (5) Decubitus ulcer, ankle ICD Code: L89.509 Status: Acute Assessment and Plan 76yrs old female with 1-Intractable nausea and vomiting: CT abdomen with finding of dilated small intestine with a decrease in caliber to the distal small intestine. Suggest some degree of ileus/obstruction. Continue NGT, NPO, IVF hydration and appreciate input from Surgery. 2-Acute renal failure; prerenal secondary to dehydration. Resolved s/p NS Boluses and IVF hydration. Renal US w/out Hydronephrosis 2-Hypotension: Secondary to volume loss; continue with IV fluid hydration and hold on antihypertensive medication 3-History of hypertension: Hold on antihypertensive medication 4-Hyponatremia: Resolved with IV fluid hydration, monitor BMP 5-Small bowel obstruction: CT abdomen with finding of dilated small intestine with a decrease in caliber to the distal small intestine. Suggest some degree of ileus/obstruction. However KUB this AM with Radiographic findings consistent with a small bowel obstruction. No evidence of free air.continue NGT, NPO, IVF hydration and appreciate input from Gen. surgery.check upper GI with small- bowel follow-through with Gastrografin today 08/10/16 6-Left ankle ulcer: wound care nurse ff; Continue Santyl post evaluation from Wound care nurse DVT prophylaxis: Bilateral SCDs Problem Qualifiers (1) Acute renal failure: Qualified Code: N17.9 - Acute renal failure, unspecified acute renal failure type Sebastian Barrios MD Aug 10, 2016 11:35 Sebastian Barrios MD Aug 10, 2016 11:35
[2016-08-10 12:00] VITALS: BP 121/76; PULSE 84; RESP 18; TEMP 97.9; O2SAT 97
[2016-08-10] MEDS ORDERED: MAGNESIUM CITRATE SOLN 300 ML BTL PO ONE ×2 (12:00→18:00)
--- NOTE | 2016-08-10 12:51 | HHI.PR ---
Subjective Subjective Notes Resting in bed Has been out of bed several times today Hungry and thirsty Does not want surgery Objective Vitals/I&O Vital Signs Date Time Temp Pulse Resp B/P Pulse Ox O2 Delivery O2 Flow Rate FiO2 08/10/16 12:00 97.9 84 18 121/76 97 08/08/16 17:48 Room Air Labs Laboratory Tests Test 08/10/16 03:52 White Blood Count 5.5 Red Blood Count 4.11 Hemoglobin 10.7 Hematocrit 32.9 Mean Corpuscular Volume 80.2 Mean Corpuscular Hemoglobin 26.0 Mean Corpuscular Hemoglobin 32.4 Concent Red Cell Distribution Width 16.0 Platelet Count 134 Mean Platelet Volume 9.4 Neutrophils (%) (Auto) 56.6 Lymphocytes (%) (Auto) 26.2 Monocytes (%) (Auto) 12.5 Eosinophils (%) (Auto) 4.5 Basophils (%) (Auto) 0.2 Neutrophils # (Auto) 3.1 Lymphocytes # (Auto) 1.4 Monocytes # (Auto) 0.7 Eosinophils # (Auto) 0.2 Basophils # (Auto) 0.0 CBC Comment DIFF FINAL Differential Comment Sodium Level 140 Potassium Level 3.8 Chloride Level 106 Carbon Dioxide Level 23.3 Anion Gap 11 Blood Urea Nitrogen 27 Creatinine 0.62 Estimat Glomerular Filtration 113 Rate Random Glucose 70 Calcium Level 8.6 Cardiovascular: Regular Lungs: Clear Abdomen: Other (abdomen soft; non tender to palpation; non distended ) Extremities: No edema A/P Assessment and Plan 76 year old female with SBO -Ice chips okay -Not able to place NGT but patient has no n/v currently -SBFT today -Continue non operative treatment of SBO Attending Statement The exam, history, and the medical decision-making described in the above note were completed with the assistance of the mid-level provider. I reviewed and agree with the findings presented. I attest that I had a [id number] encounter with the patient on the same day, and personally performed and documented my assessment and findings in the medical record. Abdominal exam soft, non-tender, no peritonitis or rebound follow up small bowel follow though patient is refusing surgery, consider starting TPN if SBFT shows obstruction Miranda Canas Aug 10, 2016 12:51 Sd Hanson MD Aug 10, 2016 16:19
[2016-08-10] MEDS: BISACODYL EC 5 MG TABEC PO SCH ×2 (18:02→20:32)
[2016-08-10 20:00] VITALS: BP 175/81; PULSE 80; RESP 22; TEMP 98.3; O2SAT 98
[2016-08-11] VITALS: BP 122/81; PULSE 84; RESP 20; TEMP 98.5; O2SAT 97
[2016-08-11] MEDS: SODIUM CHLOR 0.9% 1000 ML INJ 1,000 ML IV SCH ×3 (05:11→20:06)
--- NOTE | 2016-08-11 07:49 | HHI.PR ---
Subjective Subjective Notes "I got to go to the bathroom!" Objective Vitals/I&O Vital Signs Date Time Temp Pulse Resp B/P Pulse Ox O2 Delivery O2 Flow Rate FiO2 08/11/16 00:00 98.5 84 20 122/81 97 08/08/16 17:48 Room Air Cardiovascular: Regular Lungs: Clear Abdomen: Non-distended, Non-tender Extremities: No edema A/P Assessment and Plan 76 year old female with SBO -+BM last night and today -Start sips of clear liquids -SBFT -OOB and mobilize -Continue non operative treatment of SBO Attending Statement The exam, history, and the medical decision-making described in the above note were completed with the assistance of the mid-level provider. I reviewed and agree with the findings presented. I attest that I had a [id number] encounter with the patient on the same day, and personally performed and documented my assessment and findings in the medical record. Abdominal exam non-surgical, mild distension patient refusing surgery Miranda Canas Aug 11, 2016 07:49 Sd Hanson MD Sep 19, 2016 00:01
[2016-08-11 08:00] VITALS: BP 135/69; PULSE 78; RESP 16; TEMP 97.9; O2SAT 99
[2016-08-11] MEDS: SODIUM CHLORIDE 0.9% FLUSH 5 ML FLUSH FLUSH SCH ×2 (09:00→20:04)
[2016-08-11] MEDS: PANTOPRAZOLE SODIUM 40 MG VIAL IV PUSH SCH (09:51)
[2016-08-11] MEDS: COLLAGENASE OINT 30 GM TUBE TOP SCH (09:51)
[2016-08-11 12:00] VITALS: BP 133/68; PULSE 83; RESP 17; TEMP 97.3; O2SAT 99
--- NOTE | 2016-08-11 12:28 | HHI.PR ---
Subjective Remarks Follow up ARF/now SBO 08/09/16-patient seen and examined; still with intractable N/V; improving ARF. 08/10/16-patient seen and examined; couldn't place NGT yesterday. states she is passing Flatus but no BM. denies any BM 08/11/16-patient seen and examined in x-ray or room; denies any abdominal pain. Objective Vitals Vital Signs Date Time Temp Pulse Resp B/P Pulse Ox O2 Delivery O2 Flow Rate FiO2 08/11/16 12:00 97.3 83 17 133/68 99 08/11/16 08:00 97.9 78 16 135/69 99 08/11/16 00:00 98.5 84 20 122/81 97 08/10/16 20:00 98.3 80 22 175/81 98 I/O 08/10/16 08/10/16 08/10/16 08/11/16 08/11/16 08/11/16 07:00 15:00 23:00 07:00 15:00 23:00 Intake Total 925 ml 0 ml 2320 ml 0 ml Output Total 350 ml 200 ml 250 ml 900 ml Balance 575 ml -200 ml 2070 ml -900 ml Intake Oral 0 ml 0 ml 120 ml 0 ml IV Total 925 ml 2200 ml Output Urine Total 350 ml 200 ml 250 ml 900 ml # Bowel Movements 0 0 0 3 Result Diagram: 08/10/16 0352 08/10/16 0352 Imaging Last Impressions Abdomen X-Ray 08/10/16 0600 Signed Impressions: Service Date/Time: Wednesday, August 10, 2016 08:04 - CONCLUSION: Persistent but slightly improved ileus. No significant progression of gas in the colon. No evidence of free air. Tom Almazan MD Renal Ultrasound 08/08/16 0000 Signed Impressions: Service Date/Time: Monday, August 08, 2016 15:34 - CONCLUSION: Small echogenic kidneys without hydronephrosis. Richard Diaz MD FACR Abdomen/Pelvis CT 08/08/16 0000 Signed Impressions: Service Date/Time: Monday, August 08, 2016 11:41 - CONCLUSION: Definite caliber change in the mid to distal ileum. There are numerous fluid filled loops of small bowel between 3 to 4 cm and then the distal ileal loops area only 1 cm across. I don't see any distinct transition zone or definite internal hernia. Julio Batista MD Objective Remarks GENERAL: NAD SKIN: Warm and dry.left ankle ulcer HEAD: Normocephalic. EYES: No scleral icterus. No injection or drainage. NECK: Supple, trachea midline. No JVD or lymphadenopathy. CARDIOVASCULAR: Regular rate and rhythm without murmurs, gallops, or rubs. RESPIRATORY: Breath sounds equal bilaterally. No accessory muscle use. GASTROINTESTINAL: Abdomen soft, non-tender, nondistended. MUSCULOSKELETAL: No cyanosis, or edema. BACK: Nontender without obvious deformity. No CVA tenderness. A/P Problem List: (1) Intractable nausea and vomiting ICD Code: R11.2 Status: Acute (2) Acute renal failure ICD Code: N17.9 Status: Acute (3) Hyponatremia ICD Code: E87.1 Status: Acute (4) SBO (small bowel obstruction) ICD Code: K56.69 Status: Acute (5) Decubitus ulcer, ankle ICD Code: L89.509 Status: Acute Assessment and Plan 76yrs old female with 1-Intractable nausea and vomiting: CT abdomen with finding of dilated small intestine with a decrease in caliber to the distal small intestine. Continue clears, IVF hydration and appreciate input from Surgery. 2-Acute renal failure; prerenal secondary to dehydration. Resolved s/p NS Boluses and IVF hydration. Renal US w/out Hydronephrosis 2-Hypotension: Secondary to volume loss; now resolved with IV fluid hydration 3-History of hypertension: Currently normotensive on no medication 4-Hyponatremia: Resolved with IV fluid hydration, monitor BMP 5-Small bowel obstruction: CT abdomen with finding of dilated small intestine with a decrease in caliber to the distal small intestine. Continue with clears , IVF hydration and appreciate input from Gen. surgery. Patient to complete upper GI and small bowel follow-through today 08/11/16 pending report 6-Left ankle ulcer: wound care nurse ff; Continue Santyl post evaluation from Wound care nurse DVT prophylaxis: Bilateral SCDs Problem Qualifiers (1) Acute renal failure: Qualified Code: N17.9 - Acute renal failure, unspecified acute renal failure type Sebastian Barrios MD Aug 11, 2016 12:28 Sebastian Barrios MD Aug 11, 2016 12:28 Sebastian Barrios MD Aug 11, 2016 12:28 Sebastian Barrios MD Aug 11, 2016 12:28
[2016-08-11] MEDS ORDERED: DIATRIZOATE MEGLUM/DIATRIZOATE SOD 120 ML BTL (for RAD DIAG) PO ONE (14:29)
[2016-08-11 16:00] VITALS: BP 136/83; PULSE 82; RESP 19; TEMP 97.7; O2SAT 96
--- NOTE | 2016-08-11 17:42 | RADRPT ---
EXAM DATE/TIME: 08/11/2016 11:09 [facility] COMPARISON: CT ABDOMEN & PELVIS W/O CONTRAST, August 08, 2016, 11:41. INDICATIONS : possible obstruction, vomiting. FLUORO TIME: 1.4 minutes IMAGE COUNT: CONTRAST: Liquid E-Z Paque Barium Sulfate (60% w/v, 41% w/w) IMAGING TIME(S): 15 min, 30 min, 45 min, 1 hr, 1.5 hrs2 hr MEDICAL HISTORY : Rheumatoid arthritis. SURGICAL HISTORY : Hysterectomy. filter for blood clot ENCOUNTER: Initial ACUITY: 3 days PAIN SCORE: 0/10 LOCATION: Bilateral abdomen FINDINGS: Examination of the swallowing function demonstrates no evidence of aspiration or penetration the dist al one third of the esophagus demonstrates persistent irregularities along the anterior wall concerni ng for possible fixed stricture. Direct endoscopic evaluation is recommended if not previously perfor med. Initial imaging was performed only with thin barium. The dilated small bowel loops remain concerning for small bowel obstruction and exam was completed with Gastrografin. Examination of the stomach demonstrates no evidence of intraluminal mass or extrinsic compression. T he gastric volume appears normal and there are no findings of ulceration. The mucosal pattern appear s normal. The duodenal bulb and sweep appear normal. The visualized small bowel demonstrate diffuse dilation an d slow passage of Gastrografin. Gastrografin was ultimately seen within the cecum at the 5 hour film. Spot imaging of the abdomen demonstrated slow peristalsis of the small bowel. CONCLUSION: Incomplete small bowel obstruction versus ileus. Gastrografin was ultimately seen wit hin the large bowel by 5 hours. Arin Downey MD on August 11, 2016 at 17:37 Board Certified Radiologist. This report was verified electronically.
[2016-08-11 20:00] VITALS: BP 151/65; PULSE 63; RESP 18; TEMP 96.8; O2SAT 99
[2016-08-11] MEDS: ONDANSETRON HCL 4 MG/2 ML VIAL IVP PRN (20:12)
[2016-08-12] VITALS: BP 118/63; PULSE 64; RESP 19; TEMP 98; O2SAT 99
[2016-08-12] MEDS: SODIUM CHLOR 0.9% 1000 ML INJ 1,000 ML IV SCH ×2 (06:30→16:10)
[2016-08-12 08:00] VITALS: BP 105/71; PULSE 91; RESP 16; TEMP 96.7; O2SAT 99
[2016-08-12] MEDS: PANTOPRAZOLE SODIUM 40 MG VIAL IV PUSH SCH (08:29)
[2016-08-12] MEDS: SODIUM CHLORIDE 0.9% FLUSH 5 ML FLUSH FLUSH SCH ×2 (08:29→21:00)
[2016-08-12] MEDS: COLLAGENASE OINT 30 GM TUBE TOP SCH (08:29)
--- NOTE | 2016-08-12 11:12 | HHI.PR ---
Subjective Remarks Follow up ARF/ SBO which is now resolved 08/09/16-patient seen and examined; still with intractable N/V; improving ARF. 08/10/16-patient seen and examined; couldn't place NGT yesterday. states she is passing Flatus but no BM. denies any BM 08/11/16-patient seen and examined in x-ray or room; denies any abdominal pain. 08/12/16-patient seen and examined, reported multiple episode of emesis due to contrast patient had yesterday. This morning she appears stable and tolerated by mouth without any competition nausea and vomiting. Objective Vitals Vital Signs Date Time Temp Pulse Resp B/P Pulse Ox O2 Delivery O2 Flow Rate FiO2 08/12/16 00:00 98.0 64 19 118/63 99 08/11/16 20:00 96.8 63 18 151/65 99 08/11/16 16:00 97.7 82 19 136/83 96 08/11/16 12:00 97.3 83 17 133/68 99 I/O 08/11/16 08/11/16 08/11/16 08/12/16 08/12/16 08/12/16 07:00 15:00 23:00 07:00 15:00 23:00 Intake Total 0 ml 120 ml 470 ml 580 ml Output Total 900 ml 400 ml 1450 ml Balance -900 ml -280 ml -980 ml 580 ml Intake Oral 0 ml 120 ml 240 ml 120 ml IV Total 230 ml 460 ml Output Urine Total 900 ml 400 ml 300 ml Emesis 1150 ml # Voids 3 2 # Bowel Movements 3 3 2 4 Result Diagram: 08/10/16 0352 08/10/16 0352 Imaging Last Impressions Upper GI and Small Bowel X-Ray 08/11/16 0000 Signed Impressions: Service Date/Time: Thursday, August 11, 2016 11:09 - CONCLUSION: Incomplete small bowel obstruction versus ileus. Gastrografin was ultimately seen within the large bowel by 5 hours. Arin Downey MD Abdomen X-Ray 08/10/16 0600 Signed Impressions: Service Date/Time: Wednesday, August 10, 2016 08:04 - CONCLUSION: Persistent but slightly improved ileus. No significant progression of gas in the colon. No evidence of free air. Tom Almazan MD Renal Ultrasound 08/08/16 0000 Signed Impressions: Service Date/Time: Monday, August 08, 2016 15:34 - CONCLUSION: Small echogenic kidneys without hydronephrosis. Richard Diaz MD FACR Abdomen/Pelvis CT 08/08/16 0000 Signed Impressions: Service Date/Time: Monday, August 08, 2016 11:41 - CONCLUSION: Definite caliber change in the mid to distal ileum. There are numerous fluid filled loops of small bowel between 3 to 4 cm and then the distal ileal loops area only 1 cm across. I don't see any distinct transition zone or definite internal hernia. Julio Batista MD Objective Remarks GENERAL: NAD SKIN: Warm and dry.left ankle ulcer HEAD: Normocephalic. EYES: No scleral icterus. No injection or drainage. NECK: Supple, trachea midline. No JVD or lymphadenopathy. CARDIOVASCULAR: Regular rate and rhythm without murmurs, gallops, or rubs. RESPIRATORY: Breath sounds equal bilaterally. No accessory muscle use. GASTROINTESTINAL: Abdomen soft, non-tender, nondistended. =BS MUSCULOSKELETAL: No cyanosis, or edema. BACK: Nontender without obvious deformity. No CVA tenderness. A/P Problem List: (1) Intractable nausea and vomiting ICD Code: R11.2 Status: Resolved (2) Acute renal failure ICD Code: N17.9 Status: Resolved (3) Hyponatremia ICD Code: E87.1 Status: Resolved (4) SBO (small bowel obstruction) ICD Code: K56.69 Status: Resolved (5) Decubitus ulcer, ankle ICD Code: L89.509 Status: Chronic Assessment and Plan 76yrs old female with 1-Intractable nausea and vomiting: Resolved. CT abdomen with finding of dilated small intestine with a decrease in caliber to the distal small intestine. Continue full liquid, IVF hydration and appreciate input from Surgery. 2-Acute renal failure; prerenal secondary to dehydration. Resolved s/p NS Boluses and IVF hydration. Renal US w/out Hydronephrosis 2-Hypotension: Secondary to volume loss; now resolved with IV fluid hydration 3-History of hypertension: Currently normotensive on no medication 4-Hyponatremia: Resolved with IV fluid hydration, monitor BMP 5-Small bowel obstruction: CT abdomen with finding of dilated small intestine with a decrease in caliber to the distal small intestine. Upper GI and small bowel follow-through done yesterday 08/11/16 with finding of Incomplete small bowel obstruction versus ileus. Gastrografin was ultimately seen within the large bowel by 5 hours. Currently on clears diet has been advanced to fully liquid. 6-Left ankle ulcer: wound care nurse ff; Continue Santyl post evaluation from Wound care nurse DVT prophylaxis: Bilateral SCDs Problem Qualifiers (1) Acute renal failure: Qualified Code: N17.9 - Acute renal failure, unspecified acute renal failure type Sebastian Barrios MD Aug 12, 2016 11:12
--- NOTE | 2016-08-12 11:20 | HHI.PR ---
Subjective Subjective Notes Resting in bed; hungry Reports several BMs between yesterday and today Objective Vitals/I&O Vital Signs Date Time Temp Pulse Resp B/P Pulse Ox O2 Delivery O2 Flow Rate FiO2 08/12/16 00:00 98.0 64 19 118/63 99 08/08/16 17:48 Room Air Cardiovascular: Regular Lungs: Clear Abdomen: Other (abdomen soft; non distended; no pain with palpation) Extremities: No edema A/P Assessment and Plan 76 year old female with SBO -+BM last night and today -Advance to full liquids; advance diet as tolerated -SBFT shows contrast in large bowel -OOB and mobilize -Continue non operative treatment of SBO Attending Statement The exam, history, and the medical decision-making described in the above note were completed with the assistance of the mid-level provider. I reviewed and agree with the findings presented. I attest that I had a [id number] encounter with the patient on the same day, and personally performed and documented my assessment and findings in the medical record. Abdominal exam non-surgical, patient wants to continue non-operative mgmt Miranda Canas Aug 12, 2016 11:20 Sd Hanson MD Sep 19, 2016 00:06
[2016-08-12 12:00] VITALS: BP 126/80; PULSE 93; RESP 16; TEMP 96.2; O2SAT 99
[2016-08-12 16:00] VITALS: BP 135/62; PULSE 86; RESP 16; TEMP 97.9; O2SAT 99
[2016-08-12 20:00] VITALS: BP 116/65; PULSE 83; RESP 19; TEMP 98.4; O2SAT 98
[2016-08-12] MEDS ORDERED: SIMETHICONE 80 MG CHEWABLE TAB CHEW ONE (22:15)
[2016-08-12] MEDS: CALCIUM CARBONATE 500 MG CHEWABLE TAB CHEW PRN (23:33)
[2016-08-13] VITALS: BP 120/57; PULSE 50; RESP 20; TEMP 97.8; O2SAT 98
[2016-08-13 05:39] LABS: AUTOMATED NEUTROPHIL # 3.1 TH/MM3 (1.8-7.7); BASOPHIL % 0.2 % (0.0-2.0); EOSINOPHIL # 0.1 TH/MM3 (0-0.4); EOSINOPHIL % 2.2 % (0.0-4.0); HEMO FLAGS DIFF FINAL; LYMPH % 39.6 % (9.0-44.0); LYMPHOCYTE # 2.7 TH/MM3 (1.0-4.8); MEAN CELL VOLUME 82.2 FL (80.0-100.0); MEAN CORPUSCULAR HEMOGLOBIN 26.2 PG (27.0-34.0); MEAN CORPUSCULAR HGB CONC 31.8 % (32.0-36.0); MONO % 12.2 % (0.0-8.0); NEUT % 45.8 % (16.0-70.0); PLATELET COUNT 132 TH/MM3 (150-450); RED CELL DISTRIBUTION WIDTH 16.8 % (11.6-17.2); WHITE BLOOD COUNT 6.7 TH/MM3 (4.0-11.0)
[2016-08-13 05:47] LABS: BICARBONATE 24.2 MEQ/L (21.0-32.0)
[2016-08-13 05:57] LABS: POTASSIUM 2.9 MEQ/L (3.5-5.1)
[2016-08-13] MEDS: POTASSIUM CHLOR 20 MEQ PREMIX 100 ML IV SCH ×5 (06:30→10:40)
[2016-08-13] MEDS: SODIUM CHLOR 0.9% 1000 ML INJ 1,000 ML IV SCH ×2 (06:31→20:46)
[2016-08-13 08:00] VITALS: BP 116/61; PULSE 70; RESP 18; TEMP 97.8; O2SAT 99
[2016-08-13] MEDS: COLLAGENASE OINT 30 GM TUBE TOP SCH (09:00)
[2016-08-13] MEDS: SODIUM CHLORIDE 0.9% FLUSH 5 ML FLUSH FLUSH SCH ×2 (09:00→21:23)
--- NOTE | 2016-08-13 09:47 | RADRPT ---
EXAM DATE/TIME: 08/13/2016 09:07 [facility] COMPARISON: UGI WITH SMALL BOWEL SERIES, August 11, 2016, 11:09. INDICATIONS: Abdominal pain, evaluate small bowel obstruction MEDICAL HISTORY: Cerebrovascular accident SURGICAL HISTORY: Hysterectomy. Right hip, both hands, IVC filter ENCOUNTER: Initial ACUITY: 1 week PAIN SCORE: 0/10 LOCATION: Bilateral abdomen FINDINGS: Radiographic contrast is seen in the ascending and transverse colon. Minimal contrast is seen in the sigmoid colon. CONCLUSION: Contrast continues to move slowly through the bowel. There is no evidence for complete obstruction. Richard iDaz MD FACR on August 13, 2016 at 9:39 Board Certified Radiologist. This report was verified electronically.
[2016-08-13] MEDS: PANTOPRAZOLE SODIUM 40 MG VIAL IV PUSH SCH ×2 (09:51→18:27)
--- NOTE | 2016-08-13 10:05 | HHI.PR ---
Subjective Remarks Follow up ARF/ SBO which is now resolved 08/09/16-patient seen and examined; still with intractable N/V; improving ARF. 08/10/16-patient seen and examined; couldn't place NGT yesterday. states she is passing Flatus but no BM. denies any BM 08/11/16-patient seen and examined in x-ray or room; denies any abdominal pain. 08/12/16-patient seen and examined, reported multiple episode of emesis due to contrast patient had yesterday. This morning she appears stable and tolerated by mouth without any competition nausea and vomiting. 08/13/16-patient seen and examined, continue to suffer from episode of emesis and nausea with intake, otherwise vitals stable. Objective Vitals Vital Signs Date Time Temp Pulse Resp B/P Pulse Ox O2 Delivery O2 Flow Rate FiO2 08/13/16 00:00 97.8 50 20 120/57 98 08/12/16 20:00 98.4 83 19 116/65 98 08/12/16 16:00 97.9 86 16 135/62 99 08/12/16 12:00 96.2 93 16 126/80 99 I/O 08/12/16 08/12/16 08/12/16 08/13/16 08/13/16 08/13/16 07:00 15:00 23:00 07:00 15:00 23:00 Intake Total 580 ml 1940 ml 786 ml 485 ml Balance 580 ml 1940 ml 786 ml 485 ml Intake Oral 120 ml 480 ml 240 ml 120 ml IV Total 460 ml 1460 ml 546 ml 365 ml # Voids 2 3 1 2 # Bowel Movements 4 3 0 1 Result Diagram: 08/13/16 0327 08/13/16 0327 Imaging Last Impressions Upper GI and Small Bowel X-Ray 08/11/16 0000 Signed Impressions: Service Date/Time: Thursday, August 11, 2016 11:09 - CONCLUSION: Incomplete small bowel obstruction versus ileus. Gastrografin was ultimately seen within the large bowel by 5 hours. Arin Downey MD Abdomen X-Ray 08/10/16 0600 Signed Impressions: Service Date/Time: Wednesday, August 10, 2016 08:04 - CONCLUSION: Persistent but slightly improved ileus. No significant progression of gas in the colon. No evidence of free air. Tom Almazan MD Renal Ultrasound 08/08/16 0000 Signed Impressions: Service Date/Time: Monday, August 08, 2016 15:34 - CONCLUSION: Small echogenic kidneys without hydronephrosis. Richard Diaz MD FACR Abdomen/Pelvis CT 08/08/16 0000 Signed Impressions: Service Date/Time: Monday, August 08, 2016 11:41 - CONCLUSION: Definite caliber change in the mid to distal ileum. There are numerous fluid filled loops of small bowel between 3 to 4 cm and then the distal ileal loops area only 1 cm across. I don't see any distinct transition zone or definite internal hernia. uJlio Batista MD Objective Remarks GENERAL: NAD SKIN: Warm and dry.left ankle ulcer HEAD: Normocephalic. EYES: No scleral icterus. No injection or drainage. NECK: Supple, trachea midline. No JVD or lymphadenopathy. CARDIOVASCULAR: Regular rate and rhythm without murmurs, gallops, or rubs. RESPIRATORY: Breath sounds equal bilaterally. No accessory muscle use. GASTROINTESTINAL: Abdomen soft, non-tender, nondistended. =BS MUSCULOSKELETAL: No cyanosis, or edema. BACK: Nontender without obvious deformity. No CVA tenderness. A/P Problem List: (1) Intractable nausea and vomiting ICD Code: R11.2 Status: Acute (2) Acute renal failure ICD Code: N17.9 Status: Resolved (3) Hyponatremia ICD Code: E87.1 Status: Resolved (4) SBO (small bowel obstruction) ICD Code: K56.69 Status: Resolved (5) Decubitus ulcer, ankle ICD Code: L89.509 Status: Chronic (6) Hypokalemia ICD Code: E87.6 Status: Acute Assessment and Plan 76yrs old female with 1-Intractable nausea and vomiting: Resolved. CT abdomen with finding of dilated small intestine with a decrease in caliber to the distal small intestine. Repeat abdominal x-ray noted this morning 08/13/16. Continue full liquid, IVF hydration and appreciate input from Surgery. 2-Acute renal failure; prerenal secondary to dehydration. Resolved s/p NS Boluses and IVF hydration. Renal US w/out Hydronephrosis 2-Hypotension: Secondary to volume loss; now resolved with IV fluid hydration 3-History of hypertension: Currently normotensive on no medication 4-Hyponatremia: Resolved with IV fluid hydration, monitor BMP 5-Small bowel obstruction: CT abdomen with finding of dilated small intestine with a decrease in caliber to the distal small intestine. Upper GI and small bowel follow-through 08/11/16 with finding of Incomplete small bowel obstruction versus ileus. Gastrografin was ultimately seen within the large bowel by 5 hours. Abdomen x-ray 08/13/16 noted. Continue with full liquid as patient with current symptoms of emesis and nausea. 6-Left ankle ulcer: wound care nurse ff; Continue Santyl post evaluation from Wound care nurse 7-Hypokalemia: Replace electrolytes and monitor. DVT prophylaxis: Bilateral SCDs GI prophylaxis: PPI Problem Qualifiers (1) Acute renal failure: Qualified Code: N17.9 - Acute renal failure, unspecified acute renal failure type Sebastian Barrios MD Aug 13, 2016 10:05
[2016-08-13 12:00] VITALS: BP 121/60; PULSE 64; RESP 17; TEMP 97.7; O2SAT 100
[2016-08-13] MEDS ORDERED: POTASSIUM CL 40 MEQ/30 ML LIQ UDC PO ONE (12:45)
[2016-08-13 16:00] VITALS: BP 130/72; PULSE 60; RESP 16; TEMP 97.9; O2SAT 100
--- NOTE | 2016-08-13 18:12 | HHI.PR ---
Subjective Subjective Notes "I have to go to the bathroom!" Objective Vitals/I&O Vital Signs Date Time Temp Pulse Resp B/P Pulse Ox O2 Delivery O2 Flow Rate FiO2 08/13/16 16:00 97.9 60 16 130/72 100 Labs Laboratory Tests Test 08/13/16 03:27 White Blood Count 6.7 Red Blood Count 4.50 Hemoglobin 11.8 Hematocrit 37.0 Mean Corpuscular Volume 82.2 Mean Corpuscular Hemoglobin 26.2 Mean Corpuscular Hemoglobin 31.8 Concent Red Cell Distribution Width 16.8 Platelet Count 132 Mean Platelet Volume 9.4 Neutrophils (%) (Auto) 45.8 Lymphocytes (%) (Auto) 39.6 Monocytes (%) (Auto) 12.2 Eosinophils (%) (Auto) 2.2 Basophils (%) (Auto) 0.2 Neutrophils # (Auto) 3.1 Lymphocytes # (Auto) 2.7 Monocytes # (Auto) 0.8 Eosinophils # (Auto) 0.1 Basophils # (Auto) 0.0 CBC Comment DIFF FINAL Differential Comment Sodium Level 145 Potassium Level 2.9 Chloride Level 110 Carbon Dioxide Level 24.2 Anion Gap 11 Blood Urea Nitrogen 8 Creatinine 0.68 Estimat Glomerular Filtration 102 Rate Random Glucose 107 Calcium Level 8.4 Magnesium Level 1.1 Cardiovascular: Regular Lungs: Clear Abdomen: Non-distended, Non-tender Extremities: No edema A/P Assessment and Plan 76 year old female with SBO -+BM last night and today -On Full liquids; sometimes have nausea immediately after eating -KUB shows contrast moving -OOB and mobilize -Continue non operative treatment of SBO ---may need a short trial of Reglan ( must watch neurological status) Attending Statement The exam, history, and the medical decision-making described in the above note were completed with the assistance of the mid-level provider. I reviewed and agree with the findings presented. I attest that I had a [id number] encounter with the patient on the same day, and personally performed and documented my assessment and findings in the medical record. Abdominal exam non-surgical, non-distended, having BMs Miranda Canas Aug 13, 2016 18:12 Sd Hanson MD Sep 19, 2016 00:08
[2016-08-13] MEDS ORDERED: SIMETHICONE 80 MG CHEWABLE TAB PO PRN (19:15)
[2016-08-13 20:00] VITALS: BP 133/101; PULSE 94; RESP 20; TEMP 96.9; O2SAT 98
[2016-08-13] MEDS ORDERED: BISACODYL EC 5 MG TABEC PO ONE (21:00)
[2016-08-13] MEDS ORDERED: BISACODYL 10 MG SUPP RECTAL ONE (21:00)
[2016-08-13] MEDS: ONDANSETRON HCL 4 MG/2 ML VIAL IVP PRN (23:59)
[2016-08-14] VITALS: BP 125/67; PULSE 78; RESP 20; TEMP 98.4; O2SAT 96
[2016-08-14 08:00] VITALS: BP 126/68; PULSE 102; RESP 20; TEMP 99.1; O2SAT 96
--- NOTE | 2016-08-14 08:59 | HHI.PR ---
Subjective Remarks Follow up ARF/ SBO which is now resolved 08/09/16-patient seen and examined; still with intractable N/V; improving ARF. 08/10/16-patient seen and examined; couldn't place NGT yesterday. states she is passing Flatus but no BM. denies any BM 08/11/16-patient seen and examined in x-ray or room; denies any abdominal pain. 08/12/16-patient seen and examined, reported multiple episode of emesis due to contrast patient had yesterday. This morning she appears stable and tolerated by mouth without any competition nausea and vomiting. 08/13/16-patient seen and examined, continue to suffer from episode of emesis and nausea with intake, otherwise vitals stable. 08/14/16-patient seen and examined, patient is requesting her diet to be advanced to more solid. She denies any emesis yesterday. Patient states she would like to be discharged home not to any SNF. Currently afebrile Objective Vitals Vital Signs Date Time Temp Pulse Resp B/P Pulse Ox O2 Delivery O2 Flow Rate FiO2 08/14/16 00:00 98.4 78 20 125/67 96 08/13/16 20:00 96.9 94 20 133/101 98 08/13/16 16:00 97.9 60 16 130/72 100 08/13/16 12:00 97.7 64 17 121/60 100 I/O 08/13/16 08/13/16 08/13/16 08/14/16 08/14/16 08/14/16 07:00 15:00 23:00 07:00 15:00 23:00 Intake Total 485 ml 1550 ml 320 ml 240 ml Balance 485 ml 1550 ml 320 ml 240 ml Intake Oral 120 ml 1250 ml 320 ml 240 ml IV Total 365 ml 300 ml 0 ml 0 ml # Voids 2 4 2 1 # Bowel Movements 1 1 1 0 Result Diagram: 08/13/16 0327 08/14/16 0453 Imaging Last Impressions Abdomen X-Ray 08/13/16 0000 Signed Impressions: Service Date/Time: Saturday, August 13, 2016 09:07 - CONCLUSION: Contrast continues to move slowly through the bowel. There is no evidence for complete obstruction. Richard Diaz MD FACR Upper GI and Small Bowel X-Ray 08/11/16 0000 Signed Impressions: Service Date/Time: Thursday, August 11, 2016 11:09 - CONCLUSION: Incomplete small bowel obstruction versus ileus. Gastrografin was ultimately seen within the large bowel by 5 hours. Arin Downey MD Renal Ultrasound 08/08/16 0000 Signed Impressions: Service Date/Time: Monday, August 08, 2016 15:34 - CONCLUSION: Small echogenic kidneys without hydronephrosis. Richard Diaz MD FACR Abdomen/Pelvis CT 08/08/16 0000 Signed Impressions: Service Date/Time: Monday, August 08, 2016 11:41 - CONCLUSION: Definite caliber change in the mid to distal ileum. There are numerous fluid filled loops of small bowel between 3 to 4 cm and then the distal ileal loops area only 1 cm across. I don't see any distinct transition zone or definite internal hernia. Julio Batista MD Objective Remarks GENERAL: NAD SKIN: Warm and dry.left ankle ulcer HEAD: Normocephalic. EYES: No scleral icterus. No injection or drainage. NECK: Supple, trachea midline. No JVD or lymphadenopathy. CARDIOVASCULAR: Regular rate and rhythm without murmurs, gallops, or rubs. RESPIRATORY: Breath sounds equal bilaterally. No accessory muscle use. GASTROINTESTINAL: Abdomen soft, non-tender, nondistended. +BS MUSCULOSKELETAL: No cyanosis, or edema. BACK: Nontender without obvious deformity. No CVA tenderness. Procedures None A/P Problem List: (1) Intractable nausea and vomiting ICD Code: R11.2 Status: Acute (2) Acute renal failure ICD Code: N17.9 Status: Resolved (3) Hyponatremia ICD Code: E87.1 Status: Resolved (4) SBO (small bowel obstruction) ICD Code: K56.69 Status: Resolved (5) Decubitus ulcer, ankle ICD Code: L89.509 Status: Chronic (6) Hypokalemia ICD Code: E87.6 Status: Acute Assessment and Plan 76yrs old female with 1-Intractable nausea and vomiting: Resolved. CT abdomen with finding of dilated small intestine with a decrease in caliber to the distal small intestine. Repeat abdominal x-ray noted 08/13/16 without any evidence of obstruction. Advance to healthy diet, IVF hydration and appreciate input from Surgery. 2-Acute renal failure; prerenal secondary to dehydration. Resolved s/p NS Boluses and IVF hydration. Renal US w/out Hydronephrosis 2-Hypotension: Secondary to volume loss; now resolved with IV fluid hydration 3-History of hypertension: Currently normotensive on no medication 4-Hyponatremia: Resolved with IV fluid hydration, monitor BMP 5-Small bowel obstruction: CT abdomen with finding of dilated small intestine with a decrease in caliber to the distal small intestine. Upper GI and small bowel follow-through 08/11/16 with finding of Incomplete small bowel obstruction versus ileus. Gastrografin was ultimately seen within the large bowel by 5 hours. Abdomen x-ray 08/13/16 noted without any evidence of obstruction. Change diet to help the diet 6-Left ankle ulcer: wound care nurse ff; Continue Santyl post evaluation from Wound care nurse 7-Hypokalemia: Replace electrolytes and monitor. DVT prophylaxis: Bilateral SCDs GI prophylaxis: PPI Problem Qualifiers (1) Acute renal failure: Qualified Code: N17.9 - Acute renal failure, unspecified acute renal failure type Sebastian Barrios MD Aug 14, 2016 08:59
--- NOTE | 2016-08-14 09:03 | HHI.DS ---
Discharge Summary Admission Date Aug 08, 2016 at 14:04 Discharge Date: Aug 15, 2016 Admitting Diagnosis (1) SBO (small bowel obstruction) ICD Code: K56.69 (2) Intractable nausea and vomiting ICD Code: R11.2 (3) Acute renal failure ICD Code: N17.9 (4) Hyponatremia ICD Code: E87.1 (5) Decubitus ulcer, ankle ICD Code: L89.509 (6) Hypokalemia ICD Code: E87.6 Procedures None Brief History - From Admission 76-year-old female with history of rheumatoid arthritis who was recently admitted in hospital and discharge after undergoing surgery on her left risk for tenosynovitis/osteomyelitis back in 06/19/17 compared to the ED for evaluation of 5 day history of intractable nausea and vomiting along with abdominal pain without any chest pain or shortness of breath. States she's been vomiting mostly bile without any blood. Patient's report flatus and occasional bowel movements however states since she hasn't been able to keep anything down she is not eating much. She denies any diarrhea. Patient believes, her symptoms started after she was prescribed medication 5-6 days ago which she is unable to recall. She has sodium of 128 and BUN/[id number]/ 2.82. She has no GI bleed. CBC/BMP: 08/13/16 0327 08/14/16 0453 Significant Findings Laboratory Tests Test 08/13/16 08/14/16 03:27 04:53 Mean Corpuscular Hemoglobin 26.2 PG (27.0-34.0) Mean Corpuscular Hemoglobin 31.8 % Concent (32.0-36.0) Platelet Count 132 TH/MM3 (150-450) Monocytes (%) (Auto) 12.2 % (0.0-8.0) Potassium Level 2.9 MEQ/L 3.0 MEQ/L (3.5-5.1) (3.5-5.1) Chloride Level 110 MEQ/L (98-107) Random Glucose 107 MG/DL (74-106) Calcium Level 8.4 MG/DL (8.5-10.1) Magnesium Level 1.1 MG/DL (1.5-2.5) Estimat Glomerular Filtration 84 ML/MIN (>89) Rate Imaging Last Impressions Abdomen X-Ray 08/13/16 0000 Signed Impressions: Service Date/Time: Saturday, August 13, 2016 09:07 - CONCLUSION: Contrast continues to move slowly through the bowel. There is no evidence for complete obstruction. Richard Diaz MD FACR Upper GI and Small Bowel X-Ray 08/11/16 0000 Signed Impressions: Service Date/Time: Thursday, August 11, 2016 11:09 - CONCLUSION: Incomplete small bowel obstruction versus ileus. Gastrografin was ultimately seen within the large bowel by 5 hours. Arin Downey MD Renal Ultrasound 08/08/16 0000 Signed Impressions: Service Date/Time: Monday, August 08, 2016 15:34 - CONCLUSION: Small echogenic kidneys without hydronephrosis. Richard Diaz MD FACR Abdomen/Pelvis CT 08/08/16 0000 Signed Impressions: Service Date/Time: Monday, August 08, 2016 11:41 - CONCLUSION: Definite caliber change in the mid to distal ileum. There are numerous fluid filled loops of small bowel between 3 to 4 cm and then the distal ileal loops area only 1 cm across. I don't see any distinct transition zone or definite internal hernia. Julio Batista MD PE at Discharge GENERAL: NAD SKIN: Warm and dry.left ankle ulcer HEAD: Normocephalic. EYES: No scleral icterus. No injection or drainage. NECK: Supple, trachea midline. No JVD or lymphadenopathy. CARDIOVASCULAR: Regular rate and rhythm without murmurs, gallops, or rubs. RESPIRATORY: Breath sounds equal bilaterally. No accessory muscle use. GASTROINTESTINAL: Abdomen soft, non-tender, nondistended. +BS MUSCULOSKELETAL: No cyanosis, or edema. BACK: Nontender without obvious deformity. No CVA tenderness. Hospital Course Patient admitted secondary to intractable nausea and vomiting diagnosed with small bowel obstruction for which NG tube was placed, she was kept nothing by mouth with IV fluid along with general surgery consultation. she was treated conservatively as patient refused any surgical operation and diet was advanced accordingly. she was started on a trial of Reglan. Radiographic studies including flat and upright, upper GI series with small bowel follow-through were ordered to monitor patient's improvements. All electrolyte abnormalities were corrected accordingly. She was provided gentle IV fluid with improvement of her renal function. Wound care nurse was consulted secondary to patient's left heel ulcer and she was treated with Santyl. PT was consulted. DVT and GI prophylaxis were provided. Vitals remained stable and patient's condition prior to discharge improved. Pt Condition on Discharge: Stable Discharge Disposition: Disch w/ Home Health Serv Discharge Time: > 30 minutes Discharge Instructions DIET: Follow Instructions for: Heart Healthy Diet Activities you can perform: Regular-No Restrictions Follow up Referrals: PCP Follow-up - 1 Week SNF/[facility]/ with [facility] New Medications: Metoclopramide (Reglan) 5 Mg Tab 5 MG PO TIDAC Prevent Stress Ulcers #21 Ref 0 TAB Collagenase (Santyl) 250 Unit/Gm Oin 1 APPLIC TOP DAILY Infection #1 TUBE Simethicone (Simethicone) 80 Mg Chw 80 MG PO Q6H PRN GAS PAINS #120 EA Continued Medications: Tramadol (Ultram) 50 Mg Tab 1-2 MG PO Q4H PRN PAIN SCALE 6 TO 10 #60 TAB Sebastian Barrios MD Aug 14, 2016 09:03
[2016-08-14] MEDS ORDERED: COLL30T TOP (09:05)
[2016-08-14] MEDS ORDERED: SIME80CH PO (09:05)
--- NOTE | 2016-08-14 09:06 | HHI.FF ---
Face to Face Verification Diagnosis: (1) SBO (small bowel obstruction) (2) Decubitus ulcer, ankle (3) Intractable nausea and vomiting Physical Therapy Order: Evaluate and Treat Home Health Nursing Order: Signs/symptoms of disease process Wound care and dressing changes I have seen patient Chrissy Chacon on 08/14/16. My clinical findings support the need for the requested home health care services because: Deconditioned w/ increased weakness I certify that my clinical findings support that this patient is homebound because: Poor cardiac reserve Sebastian Barrios MD Aug 14, 2016 09:06
[2016-08-14] MEDS: SODIUM CHLORIDE 0.9% FLUSH 5 ML FLUSH FLUSH SCH ×2 (10:39→21:48)
[2016-08-14] MEDS: PANTOPRAZOLE SODIUM 40 MG VIAL IV PUSH SCH (10:40)
[2016-08-14] MEDS: COLLAGENASE OINT 30 GM TUBE TOP SCH (10:40)
[2016-08-14] MEDS: SODIUM CHLOR 0.9% 1000 ML INJ 1,000 ML IV SCH ×2 (11:04→21:48)
[2016-08-14 12:00] VITALS: BP 122/80; PULSE 92; RESP 20; TEMP 98.4; O2SAT 98
--- NOTE | 2016-08-14 15:37 | HHI.PR ---
Subjective Subjective Notes small volume emesis "I have some mucus I need to spit up" Objective Vitals/I&O Vital Signs Date Time Temp Pulse Resp B/P Pulse Ox O2 Delivery O2 Flow Rate FiO2 08/14/16 12:00 98.4 92 20 122/80 98 Labs Laboratory Tests Test 08/14/16 04:53 Sodium Level 143 Potassium Level 3.0 Chloride Level 106 Carbon Dioxide Level 29.0 Anion Gap 8 Blood Urea Nitrogen 12 Creatinine 0.80 Estimat Glomerular Filtration 84 Rate Random Glucose 99 Calcium Level 8.6 Abdomen: Non-distended, Non-tender Narrative Exam abdomen soft, non-tender, no peritonitis A/P Assessment and Plan 76yo female with PSBO, having BM, some nausea and vomiting today. continue supportive care, possibly physiologic nausea patient is refusing surgery, but would not recommend surgery with having several BMs last 48h Sd Hanson MD Aug 14, 2016 15:37
[2016-08-14 16:00] VITALS: BP 118/75; PULSE 92; RESP 20; TEMP 98.1; O2SAT 97
[2016-08-14] MEDS: METOCLOPRAMIDE HCL SYRUP 10 MG/10 ML UDC PO SCH ×2 (17:26→21:48)
[2016-08-14 20:00] VITALS: BP 117/72; PULSE 92; RESP 20; TEMP 97.6; O2SAT 98
[2016-08-15] VITALS: BP 120/74; PULSE 90; RESP 20; TEMP 98.4; O2SAT 95
[2016-08-15] MEDS: METOCLOPRAMIDE HCL SYRUP 10 MG/10 ML UDC PO SCH ×3 (05:37→13:23)
[2016-08-15 08:00] VITALS: BP 131/67; PULSE 85; RESP 17; TEMP 97.8; O2SAT 98
[2016-08-15] MEDS: PANTOPRAZOLE SODIUM 40 MG VIAL IV PUSH SCH (08:31)
[2016-08-15] MEDS: SODIUM CHLORIDE 0.9% FLUSH 5 ML FLUSH FLUSH SCH (08:31)
[2016-08-15] MEDS: COLLAGENASE OINT 30 GM TUBE TOP SCH (08:32)
[2016-08-15] MEDS: SODIUM CHLOR 0.9% 1000 ML INJ 1,000 ML IV SCH (11:43)
[2016-08-15 12:00] VITALS: BP 128/68; PULSE 88; RESP 18; TEMP 98.4; O2SAT 98
--- NOTE | 2016-08-15 12:18 | HHI.PR ---
Subjective Remarks Follow up ARF/ SBO which is now resolved 08/09/16-patient seen and examined; still with intractable N/V; improving ARF. 08/10/16-patient seen and examined; couldn't place NGT yesterday. states she is passing Flatus but no BM. denies any BM 08/11/16-patient seen and examined in x-ray or room; denies any abdominal pain. 08/12/16-patient seen and examined, reported multiple episode of emesis due to contrast patient had yesterday. This morning she appears stable and tolerated by mouth without any competition nausea and vomiting. 08/13/16-patient seen and examined, continue to suffer from episode of emesis and nausea with intake, otherwise vitals stable. 08/14/16-patient seen and examined, patient is requesting her diet to be advanced to more solid. She denies any emesis yesterday. Patient states she would like to be discharged home not to any SNF. Currently afebrile 08/15/16-patient seen and examined; now able to tolerate by mouth without any report of episode of emesis since her last reported episode yesterday. She now was eating lunch during my exam Objective Vitals Vital Signs Date Time Temp Pulse Resp B/P Pulse Ox O2 Delivery O2 Flow Rate FiO2 08/15/16 08:00 97.8 85 17 131/67 98 08/15/16 00:00 98.4 90 20 120/74 95 08/14/16 20:00 97.6 92 20 117/72 98 08/14/16 16:00 98.1 92 20 118/75 97 I/O 08/14/16 08/14/16 08/14/16 08/15/16 08/15/16 08/15/16 07:00 15:00 23:00 07:00 15:00 23:00 Intake Total 240 ml 800 ml 440 ml 240 ml Output Total 400 ml 350 ml Balance 240 ml 800 ml 40 ml -110 ml Intake Oral 240 ml 800 ml 440 ml 240 ml IV Total 0 ml 0 ml 0 ml Output Urine Total 400 ml 350 ml Stool Total 0 ml # Voids 1 3 # Bowel Movements 0 1 1 Result Diagram: 08/13/16 0327 08/14/16 0453 Imaging Last Impressions Abdomen X-Ray 08/13/16 0000 Signed Impressions: Service Date/Time: Saturday, August 13, 2016 09:07 - CONCLUSION: Contrast continues to move slowly through the bowel. There is no evidence for complete obstruction. Richard Diaz MD FACR Upper GI and Small Bowel X-Ray 08/11/16 0000 Signed Impressions: Service Date/Time: Thursday, August 11, 2016 11:09 - CONCLUSION: Incomplete small bowel obstruction versus ileus. Gastrografin was ultimately seen within the large bowel by 5 hours. Arin Downey MD Renal Ultrasound 08/08/16 0000 Signed Impressions: Service Date/Time: Monday, August 08, 2016 15:34 - CONCLUSION: Small echogenic kidneys without hydronephrosis. Richard Diaz MD FACR Abdomen/Pelvis CT 08/08/16 0000 Signed Impressions: Service Date/Time: Monday, August 08, 2016 11:41 - CONCLUSION: Definite caliber change in the mid to distal ileum. There are numerous fluid filled loops of small bowel between 3 to 4 cm and then the distal ileal loops area only 1 cm across. I don't see any distinct transition zone or definite internal hernia. Julio Batista MD Objective Remarks GENERAL: NAD SKIN: Warm and dry.left ankle ulcer HEAD: Normocephalic. EYES: No scleral icterus. No injection or drainage. NECK: Supple, trachea midline. No JVD or lymphadenopathy. CARDIOVASCULAR: Regular rate and rhythm without murmurs, gallops, or rubs. RESPIRATORY: Breath sounds equal bilaterally. No accessory muscle use. GASTROINTESTINAL: Abdomen soft, non-tender, nondistended. +BS MUSCULOSKELETAL: No cyanosis, or edema. BACK: Nontender without obvious deformity. No CVA tenderness. Procedures None A/P Problem List: (1) SBO (small bowel obstruction) ICD Code: K56.69 Status: Resolved (2) Intractable nausea and vomiting ICD Code: R11.2 Status: Acute (3) Acute renal failure ICD Code: N17.9 Status: Resolved (4) Hyponatremia ICD Code: E87.1 Status: Resolved (5) Decubitus ulcer, ankle ICD Code: L89.509 Status: Chronic (6) Hypokalemia ICD Code: E87.6 Status: Acute Assessment and Plan 76yrs old female with 1-Intractable nausea and vomiting: Resolved. CT abdomen with finding of dilated small intestine with a decrease in caliber to the distal small intestine. Repeat abdominal x-ray noted 08/13/16 without any evidence of obstruction. On healthy male and appreciate input from Surgery. 2-Acute renal failure; prerenal secondary to dehydration. Resolved s/p NS Boluses and IVF hydration. Renal US w/out Hydronephrosis 2-Hypotension: Secondary to volume loss; now resolved with IV fluid hydration 3-History of hypertension: Currently normotensive on no medication 4-Hyponatremia: Resolved with IV fluid hydration, monitor BMP 5-Small bowel obstruction: CT abdomen with finding of dilated small intestine with a decrease in caliber to the distal small intestine. Upper GI and small bowel follow-through 08/11/16 with finding of Incomplete small bowel obstruction versus ileus. Gastrografin was ultimately seen within the large bowel by 5 hours. Abdomen x-ray 08/13/16 noted without any evidence of obstruction. Currently tolerating healthy diet 6-Left ankle ulcer: wound care nurse ff; Continue Santyl post evaluation from Wound care nurse 7-Hypokalemia: Replace electrolytes and monitor. DVT prophylaxis: Bilateral SCDs GI prophylaxis: PPI Discharge Planning Discharge home with [facility] Problem Qualifiers (1) Acute renal failure: Qualified Code: N17.9 - Acute renal failure, unspecified acute renal failure type Sebastian Barrios MD Aug 15, 2016 12:18
[2016-08-15] MEDS ORDERED: REGL5TAB PO (12:24)
[2016-08-15] MEDS: CALCIUM CARBONATE 500 MG CHEWABLE TAB CHEW PRN (13:33)
== END 2016-08-15 17:52 | disposition home health service (06) | DRG 389 ==
LOC: NEPC 09:28 → NEDA 14:04 → N07A 20:56
PROVIDERS: ADMIT Hospitalist; ATTEND Hospitalist
DX: K56.5 Intestinal adhesions [bands] with obstruction (postinfection) (principal); E87.1 Hypo-osmolality and hyponatremia; N17.9 Acute kidney failure, unspecified; L89.629 Pressure ulcer of left heel, unspecified stage; M86.9 Osteomyelitis, unspecified; E55.9 Vitamin D deficiency, unspecified; E86.0 Dehydration; E87.6 Hypokalemia; M06.9 Rheumatoid arthritis, unspecified; M19.90 Unspecified osteoarthritis, unspecified site; K21.9 Gastro-esophageal reflux disease without esophagitis; I10 Essential (primary) hypertension; I87.2 Venous insufficiency (chronic) (peripheral); M81.0 Age-related osteoporosis without current pathological fracture; M65.9 Synovitis and tenosynovitis, unspecified
CPT/HCPCS: 74000; 74020; 74176; 74245; 76775; 80048; 80053; 83690; 83735; 85025; 96361; 96374; 96375; C9113; J2270; J2405; J3480; J7030; J7040; Q9963